=== PATIENT | male | born 1940 | race Caucasian/White ===

== ENCOUNTER → 2017-07-17 | Day surgery (SDC) | payer OTHER ==
[~2017-07-17] VITALS: Ht 185.4 cm; Wt 96.2 kg
[~2017-07-17] MED LIST: BENAZEPRIL HCL40 MG PO; LIPITOR80 M1 PO; NORVASC5 M1 PO; PANTOPRAZOLE SO40 M1 PO; VITAMIN D31000 UNI1 PO
--- NOTE | 2017-07-17 09:08 | Operative Report ---
Operative/Inv Procedure Report Surgery Date: 07/17/17 Name of Procedure: Laparoscopic appendectomy with partial cecectomy Pre-Operative Diagnosis: Adenoma of the appendix Post-Operative Diagnosis: Adenoma of the appendix Estimated Blood Loss: scant Surgeon/Friction Paint Machine Tender: Alfredo Garcia Jr., DO Anesthesia: general endotracheal tube Monitors: Per routine Drains: None Specimens: Appendix with portion of cecum Complications: None Condition: Good Operative Indication: This is a 77-year-old gentleman had recent colonoscopy. During the colonoscopy was noted to have a lesion protruding from the appendiceal orifice. This lesion was biopsied but could not be completely removed because it appeared to involve the lumen of the appendix. Path returns adenoma. Patient presents today for appendectomy with portion of cecum to be excised Operative/Procedure Note Note: Patient did a bowel prep the day before surgery in the event that we needed to do more extensive surgery. He presented to was taken to the operating room. On induction of general anesthesia with placement of endotracheal tube and then had bilateral tap blocks. The abdomen was prepped and draped in usual fashion. We gained access to the abdominal cavity using Frazier technique. Frazier port was placed in the suprapubic umbilical position and then the abdomen was insufflated to 15 mmHg. 25 mm ports were placed one in the suprapubic area and one left lower quadrant. Laparoscopic expiration of the abdominal cavity was performed. Patient had inguinal hernia on the right side. The appendix was identified and did appear somewhat inflamed and thickened. The appendix was grasped and elevated. Using a [place] forceps a window was made between the base of the appendix the appendix from the mesoappendix. The mesoappendix was divided with the sure device. After fully exposing the base of the appendix a laparoscopic AMIE stapler was inserted through the 12 mm port. The stapler was positioned to include a small ring of the cecum with the appendix. I made sure to not impinge on the terminal ileum. The stapler was closed and fired. Stapler was withdrawn and a laparoscopic retrieval bag was inserted through the 12 mm port. Specimen was placed into the bag and retrieved. Laparoscopic expiration of the abdominal cavity was performed was no bleeding or residual fluid. The ports were removed under direct visualization of the laparoscope. The fascia at the umbilical port was closed with figure-of- eight 0 Vicryl. The skin of all 3 ports were closed subcuticular 4-0 Monocryl and then skin glue. The patient tolerated the procedure well was extubated in the operating room and taken to the recovery area in good condition. At the end this operational needle sponges and measurements were accounted for. Discharge Disposition: PACU CC: Anival Baer MD
== END ==
LOC: STS 02:23
DX: D12.1 Benign neoplasm of appendix (principal); I25.10 Atherosclerotic heart disease of native coronary artery without angina pectoris; Z87.891 Personal history of nicotine dependence; I10 Essential (primary) hypertension
CPT/HCPCS: 88304; C9399; J0131; J0690; J2250